=== PATIENT | female | born 1955 | race Caucasian/White ===

== ENCOUNTER 2022-12-17 12:51 | Day surgery (SDC) | payer BC ==
[2022-12-17] MEDS ORDERED: Lactated Ringers 1,000 ML IV ONE ×2 (13:06→16:45)
[2022-12-17] MEDS ORDERED: DIPRIVAN 200 MG/20 ML IV ONE ×5 (16:11→17:27)
[2022-12-17] MEDS ORDERED: Xylocaine-Mpf 2% 5 Ml Vial ONE (16:11)
[2022-12-17] MEDS ORDERED: SUBLIMAZE 100 MCG/2 ML ONE (16:40)
[2022-12-17 18:48] VITALS: BP 150/82; PULSE 77; O2SAT 98
[2022-12-18] MEDS ORDERED: Lactated Ringers 1,000 ML IV SCH (08:00)
--- NOTE | 2022-12-18 09:13 | OP ---
PROCEDURE DATE/TIME: 12/17/2022 1613 PREOPERATIVE DIAGNOSIS: Abnormal appendix on CT scan. 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 2) Multiple additional colorectal polyps. 3) Severe diverticulosis. 4) Tortuous/sharply angulated colon throughout the sigmoid. 5) Benign anal tags, one moderate tag and two smaller tags all very benign appearing. 6) Fair prep. PROCEDURES: 1) Colonoscopy with hot snare polypectomy, cold snare polypectomy, cold forceps polypectomy and cold forceps biopsy. 2) Tattoo dye placement. PROCEDURE PERFORMED BY: Katherine Vieira M.D. ANESTHESIA: MAC. ESTIMATED BLOOD LOSS: Minimal less than 10 cc. COMPLICATIONS: None. SPECIMENS: 1) Splenic flexure polyp. 2) Fungating appendiceal mass biopsies. 3) Hepatic flexure polyp. 4) Splenic flexure polyps #2 and 3. 5) Sigmoid polyp x2. 6) Mid sigmoid polyp. 7) Distal sigmoid polyp. 8) Rectosigmoid polyp. 9) Distal rectal polyp. 10) Small distal rectal polyp. HISTORY: This is a patient who has seen me for multiple reasons. She does have a hernia and also is getting worked up after CT scan for an appendiceal mass that was identified as well as uterine fibroids and ventral hernia. The patient presents today for colonoscopy. Risks, benefits and alternatives have personally been discussed with the patient. She saw me in the office just this Saturday. She did well with her prep. Her H&P and consent have been reviewed with her personally confirmed and completed. DESCRIPTION OF PROCEDURE: She was then laid in the left lateral decubitus position. A complete time out performed. First, a rectal inspection and exam were done. The patient has a moderate sized benign appearing pale anal tag that looked extremely friendly. No concerns of malignancy here. She has a couple of other very tiny additional benign tags. Again, no concern for malignancy here. After the rectal exam, we then placed a scope verified our rectal exam findings and then proceeded to advance the scope to the level of the cecum. We initially identified a splenic flexure polyp which was semi-pedunculated and approximately 7 to 8 mm taken with hot snare in entirety, this site bled easily and so we closed the defect with two clips with a nice closure. We then proceeded to the cecum and identified what appeared to be edge of the ileocecal valve and also what appeared to be the appendiceal orifice. However, the anatomy was completely obliterated here due to a large fungating mass out of the appendiceal orifice that also made it difficult to see the valves properly because of how it is distorting the cecum and the angle of the valve so we can clearly see that the expected edge of the valve and that this looked to be the site where we would see the appendiceal orifice. Again, our view is somewhat limited due to the tumor, this tumor was fungating. It looked malignant. It bleeds very easily. It is friable. I took numerous biopsies of the site. All biopsies were hemostatic. The remainder of the cecum was inspected. In the cecum as well as the immediate proximal ascending colon there are approximately four more polyps. These appear small and benign and are all less than 5 mm. We then carefully withdrew the scope confirming hemostasis and as we withdrew the scope we found another sessile polyp that looked like a sessile serrated lesion that is approximately 2 cm in length, flat, probably about 1 cm or slightly more in width and would need to be likely saline lifted to appropriately excise this is a higher risk lesion. Due to the finding of the mass that appeared to be malignant in the cecum and her CT scan findings together, I expect to do a right colectomy on Lynne. I do not think the risk moving this moderate sized sessile lesion in her hepatic flexure is appropriate today since she has many other polyps that we identified on our way in and we will be removing this segment at the time of surgery. So I then placed a tattoo dye approximately 1 cm inferior and lateral to the polyp of concern to insure that at surgery to make sure that we remove at least until this segment. If it is not able to be removed, we can come back endoscopically and remove it if needed. We then continued withdrawing the scope and removed a significant number of polyps. These were all taken out in entirety. They were all retrieved and all sites were hemostatic. I will list them as follows: A small hepatic flexure polyp was removed with cold forceps, two pedunculated and semi-sessile splenic flexure polyps were each removed, one was 1 cm and one was 7 mm. They were both taken with hot snare. Two sigmoid polyps were removed that were small approximately 2 to 3 mm taken with hot forceps and cold forceps, mid sigmoid polyp with semi-pedunculated 5 mm taken with cold snare, a distal sigmoid polyp with semi-pedunculated 4 mm taken with cold snare and retrieved with cold forceps, a rectosigmoid polyp was pedunculated 1.5 cm taken with a hot snare, base bleeds easily this is at the site where she does have nearby diverticula at the distal aspect of the sigmoid and so we placed a clip here with excellent hemostasis, suction of the polyp on the end of the scope to remove it and then I replaced the scope. Inspected the site and was happy with this site and then we took another small distal rectal polyp that was about 2 to 3 cm with cold forceps and then an approximate 5 mm distal rectal semi-pedunculated polyp with cold snare. Again, all sites were hemostatic. All polyps were removed in entirety. She had a total of three clips, two on the splenic flexure initial polyp that we identified and then one at the distal sigmoid/rectosigmoid region where we took out this moderate sized polyp. There is no bleeding at the end of the procedure. The patient had severe diverticulosis this is most significant in the sigmoid but it does extend throughout her left colon. She is also sharply angulated and somewhat tortuous in her sigmoid making this scope slightly more difficult. We did use some gentle abdominal pressure to help gently and easily navigate the scope and we had no issues here. The patient also had a fair prep. It was satisfactory for visualization. However, there was staining throughout the colon. I was able to irrigate off much of this but there are patchy areas that I could not get the staining to irrigate off so we are not getting a perfect view. I also did take the splenic flexure polyp in two passes and with all of these findings together I would say she definitely should have a colonoscopy in approximately six months and we will plan for right colectomy. I will continue her work up for the suspected right colon cancer and we will work towards the next step. She is currently in recovery and when she is awake I will discuss this personally with the patient and her family. The patient tolerated the procedure very well. There were no immediate complications. Plan will be discharge home later today and I have written down all of her instructions and I will be talking to her about these momentarily. She will see me in office tentatively this Saturday.
== END 2022-12-17 16:48 | disposition home or self-care (01) ==
LOC: SDC 12:51
PROVIDERS: ATTEND Surgery
DX: D12.1 Benign neoplasm of appendix (principal); R93.89 Abnormal findings on diagnostic imaging of other specified body structures; K38.1 Appendicular concretions; K57.30 Diverticulosis of large intestine without perforation or abscess without bleeding; K64.4 Residual hemorrhoidal skin tags; D12.7 Benign neoplasm of rectosigmoid junction; D12.5 Benign neoplasm of sigmoid colon
CPT/HCPCS: J2704; J3010

== ENCOUNTER 2023-06-17 11:05 | Day surgery (SDC) | payer BC ==
[2023-06-17 11:20] VITALS: RESP 18
[2023-06-17] MEDS ORDERED: Lactated Ringers 1,000 ML IV SCH (11:30)
[2023-06-17] MEDS ORDERED: DIPRIVAN 200 MG/20 ML IV ONE ×5 (14:32→15:40)
[2023-06-17] MEDS ORDERED: Versed 2 MG/2 ML Injection ONE (14:32)
[2023-06-17] MEDS ORDERED: GlucaGen 1 MG ONE (14:49)
[2023-06-17] MEDS ORDERED: Lactated Ringers 1,000 ML IV ONE (15:31)
[2023-06-17 17:14] VITALS: BP 159/87; PULSE 66; TEMP 97.8; O2SAT 96
--- NOTE | 2023-06-19 13:55 | OP ---
PROCEDURE DATE/TIME: 06/17/2023 1434 PREOPERATIVE DIAGNOSIS: History of colon cancer and polyp. POSTOPERATIVE DIAGNOSES: 1) Right posterior anal tag. 2) Moderately enlarged internal hemorrhoid. 3) Multiple polyps. PROCEDURE: Colonoscopy to ileocolonic anastomosis. PROCEDURE PERFORMED BY: Katherine Vieira M.D. COMPLICATIONS: None. ESTIMATED BLOOD LOSS: Minimal. ANESTHESIA: MAC. SPECIMENS: 1) Splenic flexor polyp. 2) Polyp at ileocolonic anastomosis. 3) Small polyp at ileocolonic anastomosis x2. 4) Sigmoid polyp x2. 5) Rectal polyp. HISTORY: This is a patient who is well known to me status post right colectomy for colon cancer. She presents for colonoscopy. Risks, benefits and alternatives have been discussed with her in detail. Her H&P and consent reviewed and all questions answered to her satisfaction. DESCRIPTION OF PROCEDURE: She was then brought back to the endoscopy suite, laid in the left lateral decubitus position. A complete time out was performed. I first did a rectal inspection and a rectal exam. She has a moderate sized right posterior anal tag that appears to be very benign. She also has moderately enlarged internal hemorrhoids verified with insertion of the scope. Otherwise the rectal exam is normal. The scope was then gently advanced to the level of the ileocolonic anastomosis. She did have multiple polyps identified. The largest polyp was approximately 12 to 13 mm. It was semi-pedunculated and it was at the blind end of our colonic side of the anastomosis. It was taken in entirety with a hot snare, retrieved and sent to pathology. She then had another small polyp which was more distal to the initial polyp but still at the region of the ileocolonic anastomosis which was small and then a third polyp near this site which was small. These two small polyps were both taken in entirety with cold forceps and sent together as "Small polyps at ileocolonic anastomosis jar #2". We then had another splenic flexure polyp which was semi-pedunculated and taken with cold snare. Two sigmoid polyps that were about 6 to 8 mm, semi-pedunculated and taken with a hot snare and then she had a small rectal polyp taken with cold forceps. All polyps were removed in entirety. All polyp sites were hemostatic after removal and then the scope was able to be completely withdrawn. I did not find any other findings. Due to the high number of polyps and her significant history of colon cancer, I will plan to do another colonoscopy on her in one year. I have also discussed with her family these findings and she will be following up with me as an outpatient to discuss the final pathology report.
== END 2023-06-17 17:15 | disposition home or self-care (01) ==
LOC: SDC 11:05
PROVIDERS: ATTEND Surgery
DX: Z08 Encounter for follow-up examination after completed treatment for malignant neoplasm (principal); Z85.038 Personal history of other malignant neoplasm of large intestine; Z86.010 Personal history of colon polyps; K64.4 Residual hemorrhoidal skin tags; K64.8 Other hemorrhoids; D12.5 Benign neoplasm of sigmoid colon; D12.3 Benign neoplasm of transverse colon
CPT/HCPCS: J1610; J2250; J2704